=== PATIENT | male | born 1985 | race Caucasian/White ===

== ENCOUNTER 2021-03-21 07:48 | Emergency (ER) | payer MEDICAID ==
[~2021-03-21] VITALS: Ht 177.8 cm; Wt 70.9 kg
[2021-03-21 07:52] VITALS: BP 126/80
--- NOTE | 2021-03-21 08:01 | NUR ---
PATIENT ARRIVES TO ER WITH A BLISTER/WOUND TO INSIDE OF LEFT ANKLE. IT IS BLANCHABLE REDDNESS SURROUNDING, WARM, PAINFUL. NO DRAINAGE.
== END 2021-03-21 08:19 | disposition home or self-care (01) ==
LOC: ED 08:10
DX: L03.116 Cellulitis of left lower limb (principal)
CPT/HCPCS: 99283